=== PATIENT | male | born 1975 | race Caucasian/White ===

== ENCOUNTER 2021-06-17 23:36 | Emergency (ER) | payer BC ==
[~2021-06-17] VITALS: Ht 175.3 cm; Wt 79.4 kg
[2021-06-17 23:41] VITALS: BP 124/68
== END 2021-06-18 01:29 | disposition home or self-care (01) ==
LOC: ER 23:58
DX: T16.1XXA Foreign body in right ear, initial encounter (principal); X58.XXXA Exposure to other specified factors, initial encounter; Y93.89 Activity, other specified; Y92.89 Other specified places as the place of occurrence of the external cause; Y99.8 Other external cause status
CPT/HCPCS: 99284; A6403